=== PATIENT | female | born 1970 | race Caucasian/White ===

== ENCOUNTER 2018-10-07 08:51 | Inpatient (IN) | payer OTHER ==
[2018-10-04 12:54] VITALS: BMI 22.1
[2018-10-07] MEDS ORDERED: BENZOIN TINCTURE SWABSTICK TP ONE (10:38)
[2018-10-07] MEDS ORDERED: THROMBIN (BOVINE) 5,000 UNIT VIAL TP ONE (10:39)
[2018-10-07] MEDS ORDERED: fentaNYL CITRATE 250 MCG/5 ML VIAL ONE (11:08)
[2018-10-07] MEDS ORDERED: PROPOFOL 20 ML ONE ×9 (11:08→14:58)
[2018-10-07] MEDS ORDERED: ROCURONIUM BROMIDE 50 MG/5 ML VIAL ONE (11:09)
[2018-10-07] MEDS ORDERED: MIDAZOLAM HCL 2 MG/2 ML SINGLE DOSE VIAL ONE ×2 (11:09→15:31)
[2018-10-07] MEDS ORDERED: LIDOCAINE HCL/PF 2% SDV 5ML VIAL ONE (11:10)
[2018-10-07] MEDS ORDERED: PROMETHAZINE HCL 25 MG/1 ML VIAL IVPB PRN (11:56)
[2018-10-07] MEDS ORDERED: DEXAMETHASONE SOD PHOSPHATE 4 MG/1 ML VIAL IVPUSH PRN (11:56)
[2018-10-07] MEDS ORDERED: ONDANSETRON 4 MG/2 ML VIAL IVPUSH PRN ×2 (11:56→15:35)
[2018-10-07] MEDS ORDERED: LACTATED RINGERS SOLUTION 1,000 ML IV SCH ×2 (12:00→15:45)
[2018-10-07] MEDS ORDERED: HYDROmorphone *PCA* 10MG/50ML DISP.SYRIN PCA SCH (12:00)
[2018-10-07] MEDS ORDERED: ceFAZolin SODIUM 1 GM VIAL IVPB ONE ×4 (12:27→19:45)
[2018-10-07] MEDS ORDERED: ceFAZolin SODIUM 1 GM VIAL ONE ×2 (12:30→19:40)
[2018-10-07] MEDS ORDERED: SODIUM CHLORIDE 0.9% P/F 10 ML VIAL IJ ONE ×2 (12:30→12:37)
[2018-10-07] MEDS ORDERED: VANCOMYCIN 1,000 MG VIAL (RESTRICTED TO ID ONLY) ONE (12:37)
[2018-10-07] MEDS ORDERED: DEXAMETHASONE SOD PHOSPHATE 4 MG/1 ML VIAL ONE ×2 (12:39→12:50)
[2018-10-07] MEDS ORDERED: ONDANSETRON 4 MG/2 ML VIAL ONE (12:39)
[2018-10-07] MEDS ORDERED: VANCOMYCIN 1,000 MG VIAL (RESTRICTED TO ID ONLY) IVPB ONE (12:39)
[2018-10-07] MEDS ORDERED: THROMBIN (BOVINE) 5,000 UNIT VIAL IVPB ONE (13:27)
[2018-10-07] MEDS ORDERED: NEOSTIGMINE METHYLSULFATE 0.5 MG/1 ML - 10 ML MDV ONE (14:06)
[2018-10-07] MEDS ORDERED: GLYCOPYRROLATE 0.2 MG/1 ML VIAL ONE (14:06)
[2018-10-07] MEDS ORDERED: METOPROLOL TARTRATE 5 MG/5 ML VIAL ONE (14:19)
[2018-10-07] MEDS ORDERED: TRANEXAMIC ACID 1000 MG/10 ML VIAL ONE (15:11)
--- NOTE | 2018-10-07 15:32 | PN ---
Progress Note (short form) - Note Progress Note: 48F s/p C5-C6, C6-C7 anterior cervical decompression and instrumented fusion POD #0. -Admit to ICU x 24 hrs. for airway observation; OK to downgrade to floor 2018 if airway stable. -In case of emergency, remove anterior cervical spine dressing and pull out running suture. -Maintain head of bed >45 degrees. -Pain control: oral meds predominantly; NO LAY UP OPERATOR. -DVT PPx: -Mechanical only: FRANK's, SCD's. -Post-op Ancef x 3 doses. -f/u AM labs. -Incentive spirometry. -PT/OT/Rehab, OOB. -WBAT B/L UE & LE. -d/c Bernardo catheter at midnight; f/u TOV (8 hours max). -Keep dressing clean & dry. -No heavy lifting, bending or twisting. -Soft diet; advance as tolerated. -B/L UE & LE NV checks. -Care per ICU & primary medical hospitalist teams. -Discharge planning: f/u [facility] [place] office 10/18/2018; call for appointment; . Hemal Morales MD (Orthopaedic Surgery).
--- NOTE | 2018-10-07 15:34 | OP ---
Operative Note - Note: Operative Date: 10/07/18 Pre-Operative Diagnosis: Multilevel cervical spinal stenosis. Radiculopathy. Myelopathy. Claudication Operation: C5-C6, C6-7 ACDF Post-Operative Diagnosis: Same as Pre-op Surgeon: Hemal Morales Eyelet Cutter: Vega Morales Anesthesiologist/FRUIT SHIPPER: Wander Ram Anesthesia: General Specimens Removed: C5-C6, C6-C7 discs Estimated Blood Loss (mls): 30 Fluid Volume Replaced (mls): 1,400 (Crystalloid) Operative Report Dictated: Yes
[2018-10-07] MEDS ORDERED: oxyCODONE HCL 5 MG TABLET PO PRN (15:35)
[2018-10-07] MEDS ORDERED: LORazepam 2 MG/ML SDV VIAL ONE (15:39)
[2018-10-07] MEDS ORDERED: HYDROmorphone *PCA* 10MG/50ML DISP.SYRIN PCA ONE ×2 (15:45→15:54)
--- NOTE | 2018-10-07 16:44 | PN ---
Progress Note, Physician Chief Complaint: s/p C5-C6, C6-C7 anterior cervical decompression and instrumented fusion History of Present Illness: 48 year old F with h/o cervical myelopathy and lumbar radiculopathy, tobacco dependence, anxiety, COPD and ILD presents for elective spinal surgery. - Current Medication List Current Medications: Active Medications Dexamethasone Sodium Phosphate (Decadron Injection -) 4 mg IVPUSH ONCE PRN PRN Reason: NAUSEA AND/OR VOMITING Diphenhydramine HCl (Benadryl Injection -) 12.5 mg IVPUSH ONCE PRN PRN Reason: FOR ITCHING Fentanyl (Sublimaze Injection -) 50 mcg IVPUSH [id number] PRN PRN Reason: PAIN-PACU ORDER X 4 DOSES ONLY Stop: 10/07/18 19:00 Hydromorphone HCl (Dilaudid Cds Sales Advisor -) 10 mg VARNISH REMOVER VARNISH REMOVER LIZA; Protocol Stop: 10/14/18 11:56 Lactated Ringer's (Lactated Ringers Solution) 1,000 mls @ 125 mls/hr IV ASDIR LIZA Cefazolin Sodium (Ancef 1 Gm Premixed Ivpb -) 50 mls @ 100 mls/hr IVPB Q8H-IV LIZA Stop: 10/08/18 10:29 Lactated Ringer's (Lactated Ringers Solution) 1,000 mls @ 125 mls/hr IV ASDIR LIZA Lorazepam (Ativan Injection -) 1 mg IVPUSH ONCE ONE Stop: 10/07/18 15:45 Ondansetron HCl (Zofran Injection) 4 mg IVPUSH Q4H PRN PRN Reason: NAUSEA AND/OR VOMITING Stop: 10/08/18 11:55 Ondansetron HCl (Zofran Injection) 4 mg IVPUSH Q6H PRN PRN Reason: NAUSEA AND/OR VOMITING Oxycodone HCl (Roxicodone -) 5 mg PO Q4H PRN PRN Reason: PAIN LEVEL 1-5 Oxycodone HCl (Roxicodone -) 10 mg PO Q4H PRN PRN Reason: PAIN LEVEL 6-10 Promethazine HCl (Phenergan Injection -) 12.5 mg IVPB Q6H PRN PRN Reason: NAUSEA AND/OR VOMITING HOME MEDS: -flexeril 10mg TID -Proair 2puffs QID PRN -Percocet 10/325mg q6h -Prednisone 10mg BID -Valium 5mg TID - Objective Vital Signs: Vital Signs Temperature 98.1 F 10/07/18 10:08 Pulse Rate 87 10/07/18 10:08 Respiratory Rate 20 10/07/18 10:08 Blood Pressure 117/82 10/07/18 10:08 O2 Sat by Pulse Oximetry (%) 98 10/07/18 10:15 Constitutional: Yes: Well Nourished, No Distress, Other (at the time of exam pt was mildly delerius as she remained under anesthesia effects) Eyes: Yes: Conjunctiva Clear, PERRL (2mm) HENT: Yes: Atraumatic, Normocephalic Neck: Yes: Other (soft neck brace in place which precludes neck exam) Cardiovascular: Yes: Regular Rate and Rhythm Respiratory: Yes: Regular, CTA Bilaterally Gastrointestinal: Yes: Soft, Hypoactive Bowel Sounds ...Rectal Exam: Yes: Deferred Genitourinary: Yes: Bernardo Present Musculoskeletal: Yes: WNL Extremities: Yes: WNL Edema: No Peripheral Pulses WNL: Yes Peripheral Pulses: Left Radial: 2+, Right Radial: 2+, Left Doralis Pedis: 2+, Right Dorsalis Pedis: 2+ Integumentary: Yes: WNL Neurological: Yes: Oriented, Other (lethargic from anesthesia effect) ...Motor Strength: WNL Psychiatric: Yes: WNL Problem List - Problems (1) COPD (chronic obstructive pulmonary disease) Assessment/Plan: nebs PRN Code(s): J44.9 - CHRONIC OBSTRUCTIVE PULMONARY DISEASE, UNSPECIFIED (2) ILD (interstitial lung disease) Assessment/Plan: home dose of prednisone 10mg BID monitor O2 sat and resp status closely Code(s): J84.9 - INTERSTITIAL PULMONARY DISEASE, UNSPECIFIED (3) Anxiety Assessment/Plan: pt takes valium at home, which is currently on hold in the immediate post-op phase Code(s): F41.9 - ANXIETY DISORDER, UNSPECIFIED (4) Tobacco dependence Code(s): F17.200 - NICOTINE DEPENDENCE, UNSPECIFIED, UNCOMPLICATED (5) S/P cervical spinal fusion Assessment/Plan: Pain control with dilaudid VARNISH REMOVER Oxycodone 5mg PRN Pain Maintain head of bed >45 degrees. monitor in ICU overnight Incentive spirometry. Soft diet as per surgical team, advance as tolerated. Code(s): Z98.1 - ARTHRODESIS STATUS (6) Prophylactic measure Assessment/Plan: Post Abx PPX with Ancef x 3 doses SCDs and FRANK bowel regimen Zofran PRN nausea IVF overnight Code(s): Z29.9 - ENCOUNTER FOR PROPHYLACTIC MEASURES, UNSPECIFIED Impression/Plan Impression/Plan: DISPO: full code Visit type - Emergency Visit Emergency Visit: No - New Patient This patient is new to me today: Yes Date on this admission: 10/07/18 - Critical Care Critical Care patient: No - Discharge Referral Referred to [facility] Med P.C.: No
[2018-10-07] MEDS ORDERED: ACETAMINOPHEN 1000 MG/100 ML VIAL (NON FORMULARY) IVPB ONE ×2 (17:00→19:15)
[2018-10-07] MEDS ORDERED: ALBUTEROL SO4 0.083% IH SOL 2.5 MG/3 ML VIAL.NEB. NEB PRN (17:00)
[2018-10-07 18:46] LABS: BASO % 0.1 % (0-2.0); HEMATOCRIT 39.1 % (32.4-45.2); HEMOGLOBIN 12.7 GM/dL (10.7-15.3); LYMPH % 3.2 % (8-40); MCH 30.5 pg (25.7-33.7); MCHC 32.5 g/dl (32.0-36.0); MEAN CELL VOLUME 93.8 fl (80-96); MEAN PLT VOLUME 7.8 fl (7.5-11.1); MONO % 1.3 % (3.8-10.2); NEUT % 95.4 % (42.8-82.8); PLATELET COUNT 253 K/MM3 (134-434); RBC 4.17 M/mm3 (3.60-5.2); WHITE BLOOD COUNT 14.3 K/mm3 (4.0-10.0)
[2018-10-07 19:10] LABS: ALBUMIN 3.3 g/dl (3.4-5.0); ALK PHOS 41 U/L (45-117); ANION GAP 7 MMOL/L (8-16); BILIRUBIN,TOTAL 0.2 mg/dL (0.2-1); BLOOD UREA NITROGEN 11 mg/dL (7-18); CALCIUM 8.1 mg/dL (8.5-10.1); CHLORIDE 109 mmol/L (98-107); CO2 26 mmol/L (21-32); CREATININE 0.7 mg/dL (0.55-1.3); GLUCOSE,RANDOM 96 mg/dL (74-106); MAGNESIUM 2.2 mg/dL (1.8-2.4); POTASSIUM 4.2 mmol/L (3.5-5.1); SGOT/AST 21 U/L (15-37); SGPT/ALT 14 U/L (13-61); SODIUM 142 mmol/L (136-145)
[2018-10-07] MEDS ORDERED: LORazepam 2 MG/ML SDV VIAL IVPUSH ONE (19:15)
[2018-10-07 20:19] LABS: PLATELET ESTIMATE ADEQUATE
[2018-10-07] MEDS ORDERED: DEXAMETHASONE 4 MG TABLET (FP) PO ONE (22:00)
[2018-10-07] MEDS ORDERED: SENNOSIDES 8.6MG TABLET (FP) PO PRN (22:11)
[2018-10-07] MEDS: CEFAZOLIN 1 GM/D5W 1 GM/50 ML BAG IVPB SCH (22:33)
[2018-10-07] MEDS: predniSONE 10 MG TABLET (UD) PO SCH (22:33)
--- NOTE | 2018-10-07 23:25 | OP ---
DATE OF OPERATION: 10/07/2018 SURGEON: Hemal Morales MD OLIVER FILTER OPERATOR: Vega Morales MD PREOPERATIVE DIAGNOSES: C5-6, C6-C7 osteophyte disk complex with stenosis and cervical spondylogenic radicular myelopathy. POSTOPERATIVE DIAGNOSES: C5-6, C6-C7 osteophyte disk complex with stenosis and cervical spondylogenic radicular myelopathy. OPERATION PERFORMED: 1. Anterior cervical diskectomy fusion, C5-6. 2. Anterior cervical diskectomy fusion, C6-7. 3. Partial corpectomy, C5, C6, and C7. 4. Insertion of interbody cages, C5-6, C6-7. 5. Anterior arthrodesis with bone grafts, C5-6 and C6-C7. 6. Anterior plating, C5, C6, C7. ANESTHESIA: General. ANTIBIOTICS GIVEN: Kefzol 2 g, vancomycin 1 g preop; Kefzol 1 g given at the end of the procedure. Decadron 10 mg was given and tranexamic acid. OPERATION DETAILS: The patient correctly identified, brought to the operating room. Cervical spine was prepped and draped in the routine manner with Betadine scrub solution, wiped off with alcohol, DuraPrep applied. Bolsters placed behind the scapulae. The incision was made just below the level of the cricothyroid interval, that is at the level of the cricothyroid cartilage itself. It must be noted that imaging was available for intraoperative evaluation and neuromonitoring utilized throughout including assessment of vocal cords. In the supine position, the incision was made in the lines of [place] at the level of the cricocartilage. The incision enabled us to split platysma and then 1 large anterior jugular vein required ligation. Following that, the investing layer of fascia was split longitudinally upwards and downwards, that is cranially and caudally at the level of where we dissected. The strap muscles were retracted from right to left. The plane between the visceral vessels was entered, and with digital palpation, the raphe of the longus colli readily noted. A Hohmann retractor held the viscera out of harm's way, that is the larynx, pharynx. A handheld Cloward was utilized to retract the carotid sheath, putting the longus colli on stretch. Using a unipolar Bovie, the longus colli was gently lifted off the bone and the disk at the 2 levels accordingly. Once this had been performed, the mediolateral retractors were inserted. [place] pins were started off and seated in C5 and C6. Verification of the pins with lateral fluoroscopic x-rays as well as a bent 90-degree needle to show that we were in the correct level for surgical execution as necessary. To start, the annulus was transected off the bone. All the disk material was removed using curettes. The remaining bone including uncovertebral joints and the thickened ligamentum mucosa were dealt with under light microscope using a [id number] shira, using 1.5- and 2-mm Kerrisons, the entire posterior longitudinal ligament which were thickened were resected, and osteophytes at C5 and C6 were resected with an undercutting method both at C5 and C6. The C5-6 disk was distracted, and a size 7-mm Fortilink spacer inserted. This was at C5-6. At C6 -C7, the disk was treated in exactly the same manner. With distraction readily being achieved over that disk site and under light microscopy, all disk material was removed using curettes and the Midas Stephen shira as well as 1-, 1.5-, and 2-mm Kerrison upcuts to remove all the soft tissues on the theca itself. Again, undercutting at C5 and C6, the osteophytes were resected, thus completing a partial corpectomy of C5, C6, and C7 as well as the diskectomies appropriately. With distraction, a size 9 cage filled with bone morphogenic material was inserted. This was seated in such a way that it was solidly seated once the distraction device had been removed. A size 29-mm Simplicity plate was then placed to capture all 3 vertebral bodies with six 12-mm screws appropriately. A solid fixation of the plate was achieved. Lateral fluoroscopic x-ray revealed excellent positioning of the screws. The locking device was then engaged accordingly. The wounds were thoroughly lavaged. The wound was bone dry at the time of closure. Closure as follows: Subcutaneous tissues 2-0 Vicryl, skin 3-0 Monocryl with Steri-Strips. MD LOUANN Gates/[id number] MTDD
--- NOTE | 2018-10-08 01:15 | CONSULT ---
Consultation: REQUESTING PROVIDER: CONSULT REQUEST: We have been asked to medically evaluate this patient for post op. HISTORY OF PRESENT ILLNESS: This is a 48 year old female with a history of cervical myelopathy and lumbar radiculopathy, s/p L4/L5 back surgery, COPD, current smoker, who presents post op elective spine surgery. POD#0 of C5-C6, C6-C7 anterior cervical decompression and instrumented fusion. Admits to sore throat; denies pain at rest. REVIEW OF SYSTEMS: CONSTITUTIONAL: Absent: fever, chills, diaphoresis, generalized weakness, malaise, loss of appetite, weight change HEENT: Absent: rhinorrhea, nasal congestion, throat pain, throat swelling, difficulty swallowing, mouth swelling, ear pain, eye pain, visual changes CARDIOVASCULAR: Absent: chest pain, syncope, palpitations, irregular heart rate, lightheadedness , peripheral edema RESPIRATORY: Absent: cough, shortness of breath, dyspnea with exertion, orthopnea, wheezing, stridor, hemoptysis GASTROINTESTINAL: Absent: abdominal pain, abdominal distension, nausea, vomiting, diarrhea, constipation, melena, hematochezia GENITOURINARY: Absent: dysuria, frequency, urgency, hesitancy, hematuria, flank pain, genital pain MUSCULOSKELETAL: Absent: myalgia, arthralgia, joint swelling, back pain, neck pain SKIN: Absent: rash, itching, pallor HEMATOLOGIC/IMMUNOLOGIC: Absent: easy bleeding, easy bruising, lymphadenopathy, frequent infections ENDOCRINE: Absent: unexplained weight gain, unexplained weight loss, heat intolerance, cold intolerance NEUROLOGIC: Absent: headache, focal weakness or paresthesias, dizziness, unsteady gait, seizure, mental status changes, bladder or bowel incontinence PSYCHIATRIC: Absent: anxiety, depression, suicidal or homicidal ideation, hallucinations. PHYSICAL EXAMINATION Vital Signs - 24 hr 10/07/18 10/07/18 10/07/18 10:08 10:15 15:35 Temperature 98.1 F 99.4 F Pulse Rate 87 95 H Respiratory 20 12 Rate Blood Pressure 117/82 150/98 O2 Sat by Pulse 98 100 Oximetry (%) 10/07/18 10/07/18 10/07/18 15:45 16:00 16:15 Temperature Pulse Rate 95 H 95 H 88 Respiratory 12 12 12 Rate Blood Pressure 150/98 132/74 140/100 O2 Sat by Pulse 100 100 100 Oximetry (%) 10/07/18 10/07/18 10/07/18 16:30 16:45 17:00 Temperature Pulse Rate 93 H 87 86 Respiratory 17 17 14 Rate Blood Pressure 157/95 144/87 137/115 H O2 Sat by Pulse 100 100 100 Oximetry (%) 10/07/18 10/07/18 10/07/18 17:15 17:30 17:45 Temperature Pulse Rate 85 85 76 Respiratory 18 15 12 Rate Blood Pressure 118/64 147/78 121/76 O2 Sat by Pulse 98 95 95 Oximetry (%) 10/07/18 10/07/18 10/07/18 18:00 18:15 18:30 Temperature Pulse Rate 82 86 87 Respiratory 15 15 15 Rate Blood Pressure 128/71 126/78 150/105 H O2 Sat by Pulse 96 96 97 Oximetry (%) 10/07/18 10/07/18 10/07/18 18:45 19:00 19:15 Temperature 98.7 F Pulse Rate 85 78 74 Respiratory 14 12 14 Rate Blood Pressure 116/76 116/76 125/88 O2 Sat by Pulse 96 95 100 Oximetry (%) 10/07/18 10/07/18 10/07/18 19:30 19:45 20:00 Temperature Pulse Rate 75 79 85 Respiratory 11 12 15 Rate Blood Pressure 128/84 134/95 146/90 O2 Sat by Pulse 100 100 100 Oximetry (%) 10/07/18 10/07/18 10/07/18 20:15 20:30 20:45 Temperature Pulse Rate 85 84 80 Respiratory 15 15 15 Rate Blood Pressure 149/90 122/77 142/90 O2 Sat by Pulse 100 100 100 Oximetry (%) 10/07/18 10/07/18 10/07/18 21:00 21:30 21:47 Temperature 98.5 F Pulse Rate 79 86 88 Respiratory 13 13 13 Rate Blood Pressure 130/88 135/92 145/88 O2 Sat by Pulse 98 100 Oximetry (%) 10/07/18 10/07/18 10/07/18 22:00 22:40 23:35 Temperature 98.5 F 98.4 F Pulse Rate 88 68 Respiratory 18 18 18 Rate Blood Pressure 145/88 135/92 161/100 O2 Sat by Pulse Oximetry (%) GENERAL: Awake, alert, and fully oriented, in no acute distress. HEAD: Normal with no signs of trauma. EYES: Pupils equal, round and reactive to light, extraocular movements intact, sclera anicteric, conjunctiva clear. No lid lag. NECK: with cervical collar; anterior dressing place; c/d/i LUNGS: Breath sounds equal, clear to auscultation bilaterally. No wheezes, and no crackles. No accessory muscle use. HEART: Regular rate and rhythm, normal S1 and S2 without murmur, rub or gallop. ABDOMEN: Soft, nontender, not distended, normoactive bowel sounds, no guarding, no rebound, no masses. No hepatomegaly or splenomegaly. MUSCULOSKELETAL: Normal range of motion at all joints. No bony deformities or tenderness. No CVA tenderness. UPPER EXTREMITIES: 2+ pulses, warm, well-perfused. No cyanosis. No clubbing. Cap refill <2 seconds. No peripheral edema. LOWER EXTREMITIES: 2+ pulses, warm, well-perfused. No calf tenderness. No peripheral edema. NEUROLOGICAL: Cranial nerves II-XII intact. Normal speech. sensation intact LLE strength 4/5l RLE 5/5 PSYCHIATRIC: Cooperative. Good eye contact. Appropriate mood and affect. SKIN: Warm, dry, normal turgor, no rashes or lesions noted. Laboratory Results - last 24 hr 10/07/18 10/07/18 10/07/18 10:40 10:40 12:00 WBC RBC Hgb Hct MCV MCH MCHC RDW Plt Count MPV Absolute Neuts (auto) Neutrophils % Neutrophils % (Manual) Lymphocytes % Lymphocytes % (Manual) Monocytes % Monocytes % (Manual) Eosinophils % Basophils % Nucleated RBC % Platelet Estimate Sodium Potassium Chloride Carbon Dioxide Anion Gap BUN Creatinine Creat Clearance w eGFR Random Glucose Calcium Magnesium Total Bilirubin AST ALT Alkaline Phosphatase Total Protein Albumin Beta HCG, Quant < 1.0 Blood Type O POSITIVE O POSITIVE Antibody Screen Negative 10/07/18 10/07/18 18:00 18:00 WBC 14.3 H RBC 4.17 Hgb 12.7 Hct 39.1 MCV 93.8 MCH 30.5 MCHC 32.5 RDW 14.0 Plt Count 253 MPV 7.8 Absolute Neuts (auto) 13.6 H Neutrophils % 95.4 H Neutrophils % (Manual) 94.0 H Lymphocytes % 3.2 L Lymphocytes % (Manual) 4.0 L Monocytes % 1.3 L Monocytes % (Manual) 2 L Eosinophils % 0.0 Basophils % 0.1 Nucleated RBC % 0 Platelet Estimate Adequate Sodium 142 Potassium 4.2 Chloride 109 H Carbon Dioxide 26 Anion Gap 7 L BUN 11 Creatinine 0.7 Creat Clearance w eGFR 89.31 Random Glucose 96 Calcium 8.1 L Magnesium 2.2 Total Bilirubin 0.2 AST 21 ALT 14 Alkaline Phosphatase 41 L Total Protein 6.0 L Albumin 3.3 L Beta HCG, Quant Blood Type Antibody Screen Active Medications Generic Name Dose Route Start Last Admin Trade Name Freq PRN Reason Stop Dose Admin Albuterol Sulfate 1 amp 10/07/18 17:00 Ventolin 0.083% Nebulizer Soln - NEB Q6H PRN SHORT OF BREATH/WHEEZING Dexamethasone Sodium Phosphate 4 mg 10/07/18 11:56 Decadron Injection - IVPUSH ONCE PRN NAUSEA AND/OR VOMITING Diphenhydramine HCl 12.5 mg 10/07/18 11:56 Benadryl Injection - IVPUSH ONCE PRN FOR ITCHING Docusate Sodium 100 mg 10/07/18 22:15 Colace - PO TID LIZA Hydromorphone HCl 10 mg 10/07/18 12:00 Dilaudid Primary Products Inspectors - VISUAL DISPLAY MANAGER 10/14/18 11:56 VISUAL DISPLAY MANAGER [facility] Protocol Lactated Ringer's 1,000 mls @ 125 mls/hr 10/07/18 12:00 Lactated Ringers Solution IV ASDIR LIZA Cefazolin Sodium 1 gm in 50 mls @ 100 mls/hr 10/07/18 19:00 10/07/18 22:33 Ancef 1 Gm Premixed Ivpb - IVPB 10/08/18 11:29 Not Given Q8H LIZA Ondansetron HCl 4 mg 10/07/18 11:56 Zofran Injection IVPUSH 10/08/18 11:55 Q4H PRN NAUSEA AND/OR VOMITING Ondansetron HCl 4 mg 10/07/18 15:35 Zofran Injection IVPUSH Q6H PRN NAUSEA AND/OR VOMITING Oxycodone HCl 5 mg 10/07/18 15:35 Roxicodone - PO Q4H PRN PAIN LEVEL 1-5 Oxycodone HCl 10 mg 10/07/18 15:35 Roxicodone - PO Q4H PRN PAIN LEVEL 6-10 Prednisone 10 mg 10/07/18 22:00 10/07/18 22:33 Deltasone - PO Not Given BID LIZA Promethazine HCl 12.5 mg 10/07/18 11:56 Phenergan Injection - IVPB Q6H PRN NAUSEA AND/OR VOMITING Senna 2 tab 10/07/18 22:11 Senna - PO HS PRN CONSTIPATION ASSESSMENT/PLAN: This is a 48 year old female with a history of COPD, cervical myelopathy and lumbar radiculopathy, tobacco dependence, anxiety, s/p C5-C6, C6-C7 anterior cervical decompression and instrumented fusion . #POD#0 C5-C6, C6-C7 anterior cervical decompression and instrumented fusion : -Pain control with dilaudid VISUAL DISPLAY MANAGER -Oxycodone 5mg PRN Pain -IVF ON -Maintain head of bed >45 degrees. -Incentive spirometry. -Soft diet as per surgical team, advance as tolerated. VTE: scds Dispo: We will continue to follow the patient. Thank you for this consultative opportunity. Visit type - Emergency Visit Emergency Visit: Yes ED Registration Date: 10/07/18 Care time: The patient presented to the Emergency Department on the above date and was hospitalized for further evaluation of their emergent condition. - New Patient This patient is new to me today: Yes Date on this admission: 10/08/18 - Critical Care Critical Care patient: Yes Total Critical Care Time (in minutes): 35 Critical Care Statement: The care of this patient involved high complexity decision making to prevent further life threatening deterioration of the patient 's condition and/or to evaluate & treat vital organ system(s) failure or risk of failure.
[2018-10-08] MEDS: CEFAZOLIN 1 GM/D5W 1 GM/50 ML BAG IVPB SCH ×2 (03:23→10:59)
[2018-10-08 06:47] LABS: HEMATOCRIT 38.5 % (32.4-45.2); HEMOGLOBIN 12.8 GM/dL (10.7-15.3); MCH 30.7 pg (25.7-33.7); MCHC 33.2 g/dl (32.0-36.0); MEAN CELL VOLUME 92.6 fl (80-96); MEAN PLT VOLUME 7.8 fl (7.5-11.1); PLATELET COUNT 275 K/MM3 (134-434); RBC 4.15 M/mm3 (3.60-5.2); RDW 14.2 % (11.6-15.6); WHITE BLOOD COUNT 12.7 K/mm3 (4.0-10.0)
[2018-10-08] MEDS: DOCUSATE SODIUM 100 MG CAPSULE (FP) PO SCH ×3 (07:01→13:39)
[2018-10-08 07:24] LABS: ANION GAP 7 MMOL/L (8-16); BLOOD UREA NITROGEN 10 mg/dL (7-18); CALCIUM 8.8 mg/dL (8.5-10.1); CHLORIDE 106 mmol/L (98-107); CO2 27 mmol/L (21-32); CREATININE 0.6 mg/dL (0.55-1.3); GLUCOSE,RANDOM 90 mg/dL (74-106); POTASSIUM 4.2 mmol/L (3.5-5.1); SODIUM 140 mmol/L (136-145)
[2018-10-08] MEDS ORDERED: BENZOCAINE/MENTH/CETYLPYRD CL 1 EACH LOZENGE MM PRN (07:41)
[2018-10-08] MEDS: oxyCODONE HCL 5 MG TABLET PO PRN ×2 (09:46→13:38)
[2018-10-08] MEDS: predniSONE 10 MG TABLET (UD) PO SCH (09:55)
[2018-10-08] MEDS ORDERED: MUPIROCIN 2% TOPICAL OINTMENT FOR DECOLONIZATION NS SCH (10:00)
[2018-10-08] MEDS ORDERED: PANTOPRAZOLE 40 MG TABLET (FP) PO SCH (10:00)
[2018-10-08] MEDS ORDERED: PARoxetine HCL 10 MG TABLET (FP) PO SCH (10:00)
--- NOTE | 2018-10-08 11:14 | PN ---
Physical Exam: SUBJECTIVE: Patient seen and examined, She has no complaints. She denies pain - AVIONICS REPAIR TECHNICIAN was just discontinued. OBJECTIVE: Vital Signs Period Temp Pulse Resp BP Sys/Smith Pulse Ox Last 24 Hr 98.4 F-99.4 F 68-103 11-18 116-161/64-133 95-100 GENERAL: The patient is awake, alert, and fully oriented, in no acute distress. LUNGS: Breath sounds equal, clear to auscultation bilaterally, no wheezes, no crackles, no accessory muscle use. HEART: Regular rate and rhythm, S1, S2 without murmur, rub or gallop. ABDOMEN: Soft, nontender, nondistended, normoactive bowel sounds, no guarding, no rebound, no hepatosplenomegaly, no masses. EXTREMITIES: 2+ pulses, warm, well-perfused, no edema. Laboratory Results - last 24 hr 10/07/18 10/07/18 10/07/18 10:40 10:40 12:00 WBC RBC Hgb Hct MCV MCH MCHC RDW Plt Count MPV Absolute Neuts (auto) Neutrophils % Neutrophils % (Manual) Lymphocytes % Lymphocytes % (Manual) Monocytes % Monocytes % (Manual) Eosinophils % Basophils % Nucleated RBC % Platelet Estimate Sodium Potassium Chloride Carbon Dioxide Anion Gap BUN Creatinine Creat Clearance w eGFR Random Glucose Calcium Magnesium Total Bilirubin AST ALT Alkaline Phosphatase Total Protein Albumin TSH Beta HCG, Quant < 1.0 Blood Type O POSITIVE O POSITIVE Antibody Screen Negative 10/07/18 10/07/18 10/08/18 18:00 18:00 05:30 WBC 14.3 H 12.7 H RBC 4.17 4.15 Hgb 12.7 12.8 Hct 39.1 38.5 MCV 93.8 92.6 MCH 30.5 30.7 MCHC 32.5 33.2 RDW 14.0 14.2 Plt Count 253 275 MPV 7.8 7.8 Absolute Neuts (auto) 13.6 H Neutrophils % 95.4 H Neutrophils % (Manual) 94.0 H Lymphocytes % 3.2 L Lymphocytes % (Manual) 4.0 L Monocytes % 1.3 L Monocytes % (Manual) 2 L Eosinophils % 0.0 Basophils % 0.1 Nucleated RBC % 0 Platelet Estimate Adequate Sodium 142 Potassium 4.2 Chloride 109 H Carbon Dioxide 26 Anion Gap 7 L BUN 11 Creatinine 0.7 Creat Clearance w eGFR 89.31 Random Glucose 96 Calcium 8.1 L Magnesium 2.2 Total Bilirubin 0.2 AST 21 ALT 14 Alkaline Phosphatase 41 L Total Protein 6.0 L Albumin 3.3 L TSH Beta HCG, Quant Blood Type Antibody Screen 10/08/18 05:30 WBC RBC Hgb Hct MCV MCH MCHC RDW Plt Count MPV Absolute Neuts (auto) Neutrophils % Neutrophils % (Manual) Lymphocytes % Lymphocytes % (Manual) Monocytes % Monocytes % (Manual) Eosinophils % Basophils % Nucleated RBC % Platelet Estimate Sodium 140 Potassium 4.2 Chloride 106 Carbon Dioxide 27 Anion Gap 7 L BUN 10 Creatinine 0.6 Creat Clearance w eGFR 106.70 Random Glucose 90 Calcium 8.8 Magnesium Total Bilirubin AST ALT Alkaline Phosphatase Total Protein Albumin TSH 0.14 L Beta HCG, Quant Blood Type Antibody Screen Active Medications Generic Name Dose Route Start Last Admin Trade Name Freq PRN Reason Stop Dose Admin Albuterol Sulfate 1 amp 10/07/18 17:00 Ventolin 0.083% Nebulizer Soln - NEB Q6H PRN SHORT OF BREATH/WHEEZING Benzocaine/Menthol 1 each 10/08/18 07:41 Cepacol Lozenge - MM PRN PRN SORE THROAT Chlorhexidine Gluconate 1 applic 10/08/18 22:00 Hibiclens For Decolonization - TP HS LIZA Dexamethasone Sodium Phosphate 4 mg 10/07/18 11:56 Decadron Injection - IVPUSH ONCE PRN NAUSEA AND/OR VOMITING Diphenhydramine HCl 12.5 mg 10/07/18 11:56 Benadryl Injection - IVPUSH ONCE PRN FOR ITCHING Docusate Sodium 100 mg 10/07/18 22:15 10/08/18 07:03 Colace - PO 100 mg TID LIZA Administration Lactated Ringer's 1,000 mls @ 125 mls/hr 10/07/18 12:00 Lactated Ringers Solution IV ASDIR LIZA Cefazolin Sodium 1 gm in 50 mls @ 100 mls/hr 10/07/18 19:00 10/08/18 10:59 Ancef 1 Gm Premixed Ivpb - IVPB 10/08/18 11:29 100 mls/hr Q8H LIZA Administration Mupirocin 1 applic 10/08/18 10:00 10/08/18 09:54 Bactroban Ointment (For Decolonization) - NS 10/13/18 09:59 1 applic BID LIZA Administration Ondansetron HCl 4 mg 10/07/18 11:56 Zofran Injection IVPUSH 10/08/18 11:55 Q4H PRN NAUSEA AND/OR VOMITING Ondansetron HCl 4 mg 10/07/18 15:35 Zofran Injection IVPUSH Q6H PRN NAUSEA AND/OR VOMITING Oxycodone HCl 5 mg 10/07/18 15:35 Roxicodone - PO Q4H PRN PAIN LEVEL 1-5 Oxycodone HCl 10 mg 10/07/18 15:35 10/08/18 09:46 Roxicodone - PO 10 mg Q4H PRN Administration PAIN LEVEL 6-10 Pantoprazole Sodium 40 mg 10/08/18 10:00 10/08/18 09:56 Protonix - PO 10/15/18 09:59 40 mg DAILY LIZA Administration Prednisone 10 mg 10/07/18 22:00 10/08/18 09:55 Deltasone - PO 10 mg BID LIZA Administration Promethazine HCl 12.5 mg 10/07/18 11:56 Phenergan Injection - IVPB Q6H PRN NAUSEA AND/OR VOMITING Senna 2 tab 10/07/18 22:11 Senna - PO HS PRN CONSTIPATION ASSESSMENT/PLAN:
--- NOTE | 2018-10-08 11:39 | PN ---
Progress Note (short form) - Note Progress Note: Anesthesia POD#1 S/P ACDF under GA and DEPLOYMENT SPECIALIST VSS,no N/V,pain is under control,DEPLOYMENT SPECIALIST is discontinued. Shannan Bearden MD.
--- NOTE | 2018-10-08 11:49 | PN ---
Teaching Attending Note Name of Resident: Ginny Goldy ATTENDING PHYSICIAN STATEMENT I saw and evaluated the patient. I reviewed the resident's note and discussed the case with the resident. I agree with the resident's findings and plan as documented. SUBJECTIVE: Awake and alert. Breathing feels fine. No CP or SOB. Some mild surgical site discomfort. Tolerated some PO intake this AM. Intake & Output 10/05/18 10/06/18 10/07/18 10/08/18 23:59 23:59 23:59 23:59 Intake Total 2300 1230 Output Total 2730 1300 Balance -430 -70 Weight 125 lb Last Vital Signs Temp Pulse Resp BP Pulse Ox 98.4 F 93 H 18 152/92 100 10/07/18 22:40 10/08/18 05:00 10/08/18 05:00 10/08/18 05:00 10/07/18 21:30 Active Medications Albuterol Sulfate (Ventolin 0.083% Nebulizer Soln -) 1 amp NEB Q6H PRN PRN Reason: SHORT OF BREATH/WHEEZING Benzocaine/Menthol (Cepacol Lozenge -) 1 each MM PRN PRN PRN Reason: SORE THROAT Chlorhexidine Gluconate (Hibiclens For Decolonization -) 1 applic TP HS LIZA Dexamethasone Sodium Phosphate (Decadron Injection -) 4 mg IVPUSH ONCE PRN PRN Reason: NAUSEA AND/OR VOMITING Diphenhydramine HCl (Benadryl Injection -) 12.5 mg IVPUSH ONCE PRN PRN Reason: FOR ITCHING Docusate Sodium (Colace -) 100 mg PO TID [facility] Last Admin: 10/08/18 07:03 Dose: 100 mg Lactated Ringer's (Lactated Ringers Solution) 1,000 mls @ 125 mls/hr IV ASDIR LIZA Mupirocin (Bactroban Ointment (For Decolonization) -) 1 applic NS BID [facility] Stop: 10/13/18 09:59 Last Admin: 10/08/18 09:54 Dose: 1 applic Ondansetron HCl (Zofran Injection) 4 mg IVPUSH Q4H PRN PRN Reason: NAUSEA AND/OR VOMITING Stop: 10/08/18 11:55 Ondansetron HCl (Zofran Injection) 4 mg IVPUSH Q6H PRN PRN Reason: NAUSEA AND/OR VOMITING Oxycodone HCl (Roxicodone -) 5 mg PO Q4H PRN PRN Reason: PAIN LEVEL 1-5 Oxycodone HCl (Roxicodone -) 10 mg PO Q4H PRN PRN Reason: PAIN LEVEL 6-10 Last Admin: 10/08/18 09:46 Dose: 10 mg Pantoprazole Sodium (Protonix -) 40 mg PO DAILY [facility] Stop: 10/15/18 09:59 Last Admin: 10/08/18 09:56 Dose: 40 mg Prednisone (Deltasone -) 10 mg PO BID [facility] Last Admin: 10/08/18 09:55 Dose: 10 mg Promethazine HCl (Phenergan Injection -) 12.5 mg IVPB Q6H PRN PRN Reason: NAUSEA AND/OR VOMITING Senna (Senna -) 2 tab PO HS PRN PRN Reason: CONSTIPATION GENERAL: Awake, alert, and fully oriented, in no acute distress. HEAD: Normal with no signs of trauma. EYES: sclera anicteric, conjunctiva clear. NECK: Soft cervical collar; anterior dressing place LUNGS: Breath sounds equal, clear to auscultation bilaterally. No wheezes, and no crackles. No accessory muscle use. HEART: Regular rate and rhythm, normal S1 and S2 without murmur, rub or gallop. ABDOMEN: Soft, nontender, not distended, normoactive bowel sounds, no guarding, no rebound, no masses. No hepatomegaly or splenomegaly. MUSCULOSKELETAL: Normal range of motion at all joints. No bony deformities or tenderness. No CVA tenderness. UPPER EXTREMITIES: 2+ pulses, warm, well-perfused. No cyanosis. No clubbing. Cap refill <2 seconds. No peripheral edema. LOWER EXTREMITIES: 2+ pulses, warm, well-perfused. No calf tenderness. No peripheral edema. NEUROLOGICAL: Non-versed PSYCHIATRIC: Cooperative. Good eye contact. Appropriate mood and affect. SKIN: Warm, dry, normal turgor, no rashes or lesions noted. ASSESSMENT/PLAN: POD#1 C5-C6, C6-C7 anterior cervical decompression and instrumented fusion COPD Cervical myelopathy Lumbar radiculopathy Tobacco dependence Anxiety Pain control PO as tolerated Incentive Spirometry No smoking SCDs D/C planning when OK with surgery Dr Crawley
--- NOTE | 2018-10-08 12:04 | PN ---
Physical Exam: SUBJECTIVE: Patient seen this morning and states her pain is well controlled. She is tolerating walking. She is tolerating food and has no acute complaints. OBJECTIVE: Vital Signs Temperature 98.4 F 10/07/18 22:40 Pulse Rate 93 H 10/08/18 05:00 Respiratory Rate 18 10/08/18 05:00 Blood Pressure 152/92 10/08/18 05:00 O2 Sat by Pulse Oximetry (%) 100 10/07/18 21:30 GENERAL: The patient is awake, alert, and fully oriented, in no acute distress. HEAD: Normal with no signs of trauma. EYES: PERRL, extraocular movements intact, LUNGS: Breath sounds equal, clear to auscultation bilaterally, no wheezes, no crackles, no accessory muscle use. HEART: Regular rate and rhythm, S1, S2 without murmur, rub or gallop. ABDOMEN: Soft, nontender, nondistended, normoactive bowel sounds, EXTREMITIES: 2+ pulses, warm, well-perfused, no edema. NEUROLOGICAL: Cranial nerves II through XII grossly intact. Normal speech, gait normal SKIN: Warm, dry, normal turgor, no rashes or lesions noted CBCD WBC 12.7 K/mm3 (4.0-10.0) H 10/08/18 05:30 RBC 4.15 M/mm3 (3.60-5.2) 10/08/18 05:30 Hgb 12.8 GM/dL (10.7-15.3) 10/08/18 05:30 Hct 38.5 % (32.4-45.2) 10/08/18 05:30 MCV 92.6 fl (80-96) 10/08/18 05:30 MCHC 33.2 g/dl (32.0-36.0) 10/08/18 05:30 RDW 14.2 % (11.6-15.6) 10/08/18 05:30 Plt Count 275 K/MM3 (134-434) 10/08/18 05:30 MPV 7.8 fl (7.5-11.1) 10/08/18 05:30 CMP Sodium 140 mmol/L (136-145) 10/08/18 05:30 Potassium 4.2 mmol/L (3.5-5.1) 10/08/18 05:30 Chloride 106 mmol/L (98-107) 10/08/18 05:30 Carbon Dioxide 27 mmol/L (21-32) 10/08/18 05:30 Anion Gap 7 MMOL/L (8-16) L 10/08/18 05:30 BUN 10 mg/dL (7-18) 10/08/18 05:30 Creatinine 0.6 mg/dL (0.55-1.3) 10/08/18 05:30 Creat Clearance w eGFR 106.70 (>60) 10/08/18 05:30 Calcium 8.8 mg/dL (8.5-10.1) 10/08/18 05:30 Total Bilirubin 0.2 mg/dL (0.2-1) 10/07/18 18:00 AST 21 U/L (15-37) 10/07/18 18:00 ALT 14 U/L (13-61) 10/07/18 18:00 Alkaline Phosphatase 41 U/L (45-117) L 10/07/18 18:00 Total Protein 6.0 g/dl (6.4-8.2) L 10/07/18 18:00 Albumin 3.3 g/dl (3.4-5.0) L 10/07/18 18:00 Active Medications Albuterol Sulfate (Ventolin 0.083% Nebulizer Soln -) 1 amp NEB Q6H PRN PRN Reason: SHORT OF BREATH/WHEEZING Benzocaine/Menthol (Cepacol Lozenge -) 1 each MM PRN PRN PRN Reason: SORE THROAT Chlorhexidine Gluconate (Hibiclens For Decolonization -) 1 applic TP HS [facility] Dexamethasone Sodium Phosphate (Decadron Injection -) 4 mg IVPUSH ONCE PRN PRN Reason: NAUSEA AND/OR VOMITING Diphenhydramine HCl (Benadryl Injection -) 12.5 mg IVPUSH ONCE PRN PRN Reason: FOR ITCHING Docusate Sodium (Colace -) 100 mg PO TID [facility] Last Admin: 10/08/18 07:03 Dose: 100 mg Lactated Ringer's (Lactated Ringers Solution) 1,000 mls @ 125 mls/hr IV ASDIR LIZA Mupirocin (Bactroban Ointment (For Decolonization) -) 1 applic NS BID [facility] Stop: 10/13/18 09:59 Last Admin: 10/08/18 09:54 Dose: 1 applic Ondansetron HCl (Zofran Injection) 4 mg IVPUSH Q4H PRN PRN Reason: NAUSEA AND/OR VOMITING Stop: 10/08/18 11:55 Ondansetron HCl (Zofran Injection) 4 mg IVPUSH Q6H PRN PRN Reason: NAUSEA AND/OR VOMITING Oxycodone HCl (Roxicodone -) 5 mg PO Q4H PRN PRN Reason: PAIN LEVEL 1-5 Oxycodone HCl (Roxicodone -) 10 mg PO Q4H PRN PRN Reason: PAIN LEVEL 6-10 Last Admin: 10/08/18 09:46 Dose: 10 mg Pantoprazole Sodium (Protonix -) 40 mg PO DAILY [facility] Stop: 10/15/18 09:59 Last Admin: 10/08/18 09:56 Dose: 40 mg Prednisone (Deltasone -) 10 mg PO BID [facility] Last Admin: 10/08/18 09:55 Dose: 10 mg Promethazine HCl (Phenergan Injection -) 12.5 mg IVPB Q6H PRN PRN Reason: NAUSEA AND/OR VOMITING Senna (Senna -) 2 tab PO HS PRN PRN Reason: CONSTIPATION ASSESSMENT/PLAN: Patient is a 48 y/o female with a history of cervical myelopathy and lumbar radiculopathy and COPD who is here for a cervical decompression. 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 Morales and patient can follow up as an outpatient - Oxy 5 and 10 as needed with pain scale Cardio - stable Pulm - albuterol as needed - continue incentive spirometry GI - zofran as needed for nausea Nephro - stable FEN - patient toleration po food Dispo: Patient safe to be discharged home, will follow up with Dr. Morales as an outpatient. Visit type - Emergency Visit Emergency Visit: No - New Patient This patient is new to me today: Yes Date on this admission: 10/08/18 - Critical Care Critical Care patient: No Total Critical Care Time (in minutes): 35 Critical Care Statement: The care of this patient involved high complexity decision making to prevent further life threatening deterioration of the patient 's condition and/or to evaluate & treat vital organ system(s) failure or risk of failure.
--- NOTE | 2018-10-08 12:41 | DS ---
Physical Exam: SUBJECTIVE: Patient seen and examined. She has no complaints. She is ambulating in her room without difficulty. She is tolerating a soft diet. OBJECTIVE: Vital Signs Period Temp Pulse Resp BP Sys/Smith Pulse Ox Last 24 Hr 98.4 F-99.4 F 68-103 11-18 116-161/64-133 95-100 PHYSICAL EXAM GENERAL: The patient is awake, alert, and fully oriented, in no acute distress. NECK: Soft collar in place. LUNGS: Breath sounds equal, clear to auscultation bilaterally, no wheezes, no crackles, no accessory muscle use. HEART: Regular rate and rhythm, S1, S2 without murmur, rub or gallop. ABDOMEN: Soft, nontender, nondistended, normoactive bowel sounds, no guarding, no rebound, no hepatosplenomegaly, no masses. EXTREMITIES: 2+ pulses, warm, well-perfused, no edema. LABS Laboratory Results - last 24 hr 10/07/18 10/07/18 10/07/18 12:00 18:00 18:00 WBC 14.3 H RBC 4.17 Hgb 12.7 Hct 39.1 MCV 93.8 MCH 30.5 MCHC 32.5 RDW 14.0 Plt Count 253 MPV 7.8 Absolute Neuts (auto) 13.6 H Neutrophils % 95.4 H Neutrophils % (Manual) 94.0 H Lymphocytes % 3.2 L Lymphocytes % (Manual) 4.0 L Monocytes % 1.3 L Monocytes % (Manual) 2 L Eosinophils % 0.0 Basophils % 0.1 Nucleated RBC % 0 Platelet Estimate Adequate Sodium 142 Potassium 4.2 Chloride 109 H Carbon Dioxide 26 Anion Gap 7 L BUN 11 Creatinine 0.7 Creat Clearance w eGFR 89.31 Random Glucose 96 Calcium 8.1 L Magnesium 2.2 Total Bilirubin 0.2 AST 21 ALT 14 Alkaline Phosphatase 41 L Total Protein 6.0 L Albumin 3.3 L TSH Blood Type O POSITIVE 10/08/18 10/08/18 05:30 05:30 WBC 12.7 H RBC 4.15 Hgb 12.8 Hct 38.5 MCV 92.6 MCH 30.7 MCHC 33.2 RDW 14.2 Plt Count 275 MPV 7.8 Absolute Neuts (auto) Neutrophils % Neutrophils % (Manual) Lymphocytes % Lymphocytes % (Manual) Monocytes % Monocytes % (Manual) Eosinophils % Basophils % Nucleated RBC % Platelet Estimate Sodium 140 Potassium 4.2 Chloride 106 Carbon Dioxide 27 Anion Gap 7 L BUN 10 Creatinine 0.6 Creat Clearance w eGFR 106.70 Random Glucose 90 Calcium 8.8 Magnesium Total Bilirubin AST ALT Alkaline Phosphatase Total Protein Albumin TSH 0.14 L Blood Type HOSPITAL COURSE: Date of Admission:10/07/18 Date of Discharge: 10/08/18 Minutes to complete discharge: 30 Discharge Summary Reason For Visit: CERVICAL DISC DISORDER AT C5-C6 LEVEL WITH MYELOPA Current Active Problems Cervical radiculopathy (Acute) Stenosis of cervical spine with myelopathy (Acute) COPD (chronic obstructive pulmonary disease) (Chronic) ILD (interstitial lung disease) (Chronic) Anxiety (Chronic) Tobacco dependence (Chronic) S/P cervical spinal fusion (Acute) Condition: Good - Instructions Diet, Activity, Other Instructions: You were admitted to [facility] on October 07 for cervical spine decompression and fusion. The surgery was done on October [address] Hemal Morales. You did well after surgery and are being discharged to home on October 08. You may resume your usual diet. Dr. Morales's discharge instructions are below. A prescription for oxycodone/acetaminophen 10/325 mg has been sent to [facility]. -Keep dressing clean & dry. -No heavy lifting, bending or twisting. -Follow-up at [facility] office 10/18/2018; call for appointment; . Disposition: HOME - Home Medications Comprehensive Discharge Medication List: Ambulatory Orders Oxycodone HCl 15 mg PO BID 10/04/18 Prednisone 10 mg PO AM 10/04/18 Albuterol Sulfate [Proair Hfa] 2 inh IH Q4H PRN 10/08/18 Diazepam 10 mg PO BID PRN 10/08/18 Mometasone Furoate [Asmanex 220Mcg -] 1 inh IH BID PRN 10/08/18 Oxycodone HCl/Acetaminophen [Oxycodone-Acetaminophen 10-325] 1 each PO Q6H PRN # 20 tablet MDD 4 tabs 10/08/18 - Discharge Referral Referred to [facility] No
[2018-10-08 12:48] VITALS: BP 136/90; PULSE 89; TEMP 98.2
[2018-10-08] MEDS ORDERED: CHLORHEXIDINE GLUCONATE 4% CLEANSER FOR DECOLONIZATION TP SCH (22:00)
--- NOTE | 2018-10-09 16:56 | PATH ---
Surgical Pathology Report Patient Name: MICHELLE MCCAIN [facility]. Rec. #: [id number] /Age/Gender: 1970 (Age: 48) / F Account: [id number] [facility] Taken: 10/07/2018 Received: 10/08/2018 Reported: 10/09/2018 Physicians: Hemal Morales M.D. Specimen(s) Received C5-C6 DISC Clinical History Cervical disc disorder at C5-C6 level with myelopathy Final Diagnosis C5-C6 DISC, DISCECTOMY: CARTILAGINOUS TISSUE WITH DEGENERATIVE CHANGE. Electronically Signed Jenniffer Cherry M.D. Gross Description Received in formalin labeled "C5-C6 disc," is a 3.0 x 2.5 x 0.4 cm aggregate of crouch fragments of fibrocartilaginous tissue. A home office representative portion is submitted in one cassette. /10/08/2018 saudi/10/08/2018
== END 2018-10-08 13:45 | disposition home or self-care (01) | DRG 29 ==
LOC: JSAMEDAYSX 09:27 → EDSTATUS 11:00 → JICU 22:07
PROVIDERS: ADMIT Orthopaedic Surgery Orthopaedic Surgery of the Spine; ATTEND Internal Medicine
PROC: 0RB30ZZ Excision of Cervical Vertebral Disc, Open Approach (ICD-10-PCS; 2018-10-07)
PROC: B01BZZZ Fluoroscopy of Spinal Cord (ICD-10-PCS; 2018-10-07)
PROC: 4A11X4G Monitoring of Peripheral Nervous Electrical Activity, Intraoperative, External Approach (ICD-10-PCS; 2018-10-07)
PROC: 3E0U0GB Introduction of Recombinant Bone Morphogenetic Protein into Joints, Open Approach (ICD-10-PCS; 2018-10-07)
PROC: 0RG20A0 Fusion of 2 or more Cervical Vertebral Joints with Interbody Fusion Device, Anterior Approach, Anterior Column, Open Approach (ICD-10-PCS; principal; 2018-10-07 11:00)
DX: M54.12 Radiculopathy, cervical region (principal); J84.9 Interstitial pulmonary disease, unspecified; M47.12 Other spondylosis with myelopathy, cervical region; M48.02 Spinal stenosis, cervical region; M25.78 Osteophyte, vertebrae; J44.9 Chronic obstructive pulmonary disease, unspecified; F41.9 Anxiety disorder, unspecified; F17.210 Nicotine dependence, cigarettes, uncomplicated
CPT/HCPCS: 36415; 76000-TC-FY; 80048; 80053; 83735; 84311; 84436; 84443; 84702; 85025; 85027; 86850; 86900; 86901; 88304-TC; 94010; 94760; 97116-GP; 97161-GP; J0131